=== PATIENT | female | born 1960 | race Two or more races ===

== ENCOUNTER 2023-09-07 12:19 | Outpatient (OUT) | payer MEDICARE, MEDICAID, SELFPAY ==
--- NOTE | 2023-09-07 13:00 | CA_ITS ---
Patient Name: MARCELLO HOLLINS MR#: [id number] : 1960 Exam Date: 09/07/2023 Ordering Doctor: Non-Staff Physician ECHOCARDIOGRAM REPORT PROCEDURE: CA ECHO DOPPLER COMPLETE INDICATIONS: Shortness of breath, dialysis, smoker COMPARISON: None. DESCRIPTION: COMPLETE ECHOCARDIOGRAM Real-time transthoracic echocardiography with 2D, M-mode, spectral and color flow Doppler performed. QUALITY: Technical quality was good. LEFT VENTRICLE: Normal chamber size. Proximal septal hypertrophy (sigmoid septum). Normal systolic function. LV EF: Normal left ventricular ejection fraction, (>55%). DIASTOLIC: Diastolic function is indeterminate. ATRIAL SEPTUM: Visually appears intact. LEFT ATRIUM: Normal chamber size. RIGHT ATRIUM: Normal chamber size. RIGHT VENTRICLE: Normal chamber size. Normal right ventricular systolic function. TRICUSPID VALVE: Normal mobility and thickness. No stenosis with no regurgitation. Unable to assess right-sided pressures due to lack of measurable tricuspid regurgitation. MITRAL VALVE: Mildly thickened with normal mobility. No evidence of mitral valve stenosis. Mild mitral annular calcification. Mild to moderate mitral regurgitation. The jet is eccentric and posteriorly directed. AORTIC VALVE: Normal trileaflet appearance. Mildly calcified aortic valve. Mildly diminished mobility. No evidence of aortic valve stenosis. No aortic regurgitation. AORTIC ROOT: Normal diameter and appearance. Ascending aorta is normal in size. PULMONIC VALVE: Normal thickness and mobility. No stenosis. No regurgitation. PERICARDIUM: No evidence of pericardial effusion. IVC: Collapses with inspirations. PLEURA: CONCLUSION: 1. Concentric left ventricular hypertrophy with normal systolic function. LVEF is 55 to 60%. 2. Normal right ventricular size and systolic function. 3. Mild to moderate mitral regurgitation with eccentric posteriorly directed jet. 4. Unable to assess right-sided pressures due to lack of measurable tricuspid regurgitation. 5. No pericardial effusion. Adult Echocardiography Procedure Report Left Ventricle LVEDD (3.7 - 5.6 cm): 4.18 cm LVESD (2.2 - 4.0 cm): 2.67 cm LVIVS thickness (0.6 - 1.2 cm): 1.53 cm LVPW thickness (0.5 - 1.0 cm): 0.95 cm e': 0.05 m/s E - e': 10.56 LVOT Max Gradient: 4.04 mm[Hg] LVOT Area (cm2): 1.00 m/s Peak Velocity (LVOT): 1.00 m/s Mean Velocity (LVOT): 0.62 m/s LVOT Diameter 2.24 cm Left Atrium LA Volume Index (2D A2C): 19.55 ml/m2 Left Atrium Systolic Dimension: 3.11 cm Mitral Valve MV E to A Ratio: 0.65 Mitral Valve A-Wave Peak Velocity: 0.79 m/s Mitral Valve E-Wave Peak Velocity: 0.52 m/s Right Ventricle Aorta AO Root Diam: 2.87 cm Ascending Ao Diam: 1.58 cm Aortic Valve AoV Area (Peak Nic): 2.77 cm2, 2.77 cm2 AoV Area (VTI): 3.18 cm2, 3.18 cm2 Peak Velocity(Antegrade Flow): 1.43 m/s Peak Gradient(Antegrade Flow): 8.15 mm[Hg] Mean Velocity(Antegrade Flow): 0.98 m/s Mean Gradient(Antegrade Flow): 4.38 mm[Hg] Velocity Time Integral: 23.06 cm Tricuspid Valve Pulmonic Valve Mean Gradient: 2.34 mm[Hg] Mean Velocity: 0.72 m/s Peak Velocity: 1.07 m/s, 1.07 m/s Peak Gradient: 4.61 mm[Hg], 4.61 mm[Hg] Right Atrium Right Atrium Systolic Pressure: 14.19 ml, 14.19 ml Dictated by: Guru Etienne M.D. on 09/08/2023 at 13:06 Approved by: Guru Etienne M.D. on 09/08/2023 at 13:12
== END 2023-09-07 12:20 | disposition home or self-care (01) ==
PROVIDERS: PCP Family Medicine
DX: R06.02 Shortness of breath (principal)
CPT/HCPCS: 93306